=== PATIENT | female | born 1995 | race Caucasian/White ===

== ENCOUNTER 2016-09-12 08:24 | Emergency (ER) | payer SELFPAY ==
[~2016-09-12] VITALS: Ht 167.6 cm; Wt 61.2 kg
[~2016-09-12 08:24] MED LIST: ACID1TAB PO; BUDE0.5A INH; CEPH-507 PO; CLIN75CA2 PO; HYDR-3454 PO; HYDR1TAB PO; IPRA3AMP INH; PRD20T PO; SULF1TAB38 PO
[2016-09-12] MEDS ORDERED: RT-ALBUTEROL/IPRATROPIUM 3 ML (DUONEB) VIAL ONE (08:37)
[2016-09-12] MEDS ORDERED: RT-ALBUTEROL/IPRATROPIUM 3 ML (DUONEB) VIAL INH ONE (08:45)
[2016-09-12] MEDS ORDERED: methylPREDNISolone 125 MG (Solu-MEDROL) VIAL IM ONE (09:15)
--- NOTE | 2016-09-12 09:45 | Diagnostic Imaging Report ---
Indication: Cough and wheezing PA and lateral chest obtained at 932 hours a.m. Heart and mediastinal silhouette are normal in appearance. The lungs are clear. There is no pneumothorax or pleural fluid. IMPRESSION: Negative chest. Dictated by: Dictated on workstation # [id number]
[2016-09-12] MEDS ORDERED: PRD20T PO (10:06)
[2016-09-12] MEDS ORDERED: RT-ALBUINH IH (10:06)
[2016-09-12] MEDS ORDERED: ALBU2.5V4 IH (10:06)
--- NOTE | 2016-09-12 10:07 | ED Respiratory ---
General Chief Complaint: Respiratory Problems Stated Complaint: COUGH/SOA Nursing Triage Note: c/o difficulty breathing with cough. Significant wheezing auscultated. Pt reports having these episodes 2 times per week. Continues to smoke. Source: patient Exam Limitations: no limitations History of Present Illness Time seen by provider: 08:35 Initial Comments This 20-year-old young lady presents to emergency room with difficulty breathing , cough, and wheezing. She is in mild respiratory distress on arrival. She denies fever but is diaphoretic. She has been seen and admitted for respiratory problems in the past. She has never been formally diagnosed with asthma but has symptoms. She never had her inhaler filled after being seen the last time because of cost. She also has a history of methamphetamine use and smoking marijuana. She denies use of illicit substances within the past few days. She is presently seeking treatment at [facility] for substance abuse. She continues to smoke despite her respiratory problems. She has been using another family member's nebulizer machine at home but it broke last night. She has not had a nebulizer treatment today. Allergies and Home Medications Allergies Coded Allergies: Penicillins (Unverified Allergy, Mild, 05/03/10) ampicillin (Verified Allergy, Mild, 10/21/12) levofloxacin (Verified Allergy, Mild, RASH/ITCHING, 05/21/15) Home Medications Albuterol Sulfate 2.5 Mg/3 Ml Vial.neb, 2.5 MG IH Q4H PRN for WHEEZING, #30 Prescribed by: PERLA DE LA O on 09/12/16 1006 Albuterol Sulfate 1 Puff Puff, 1-4 PUFF IH Q4H PRN for WHEEZING, #1 1 PUFF = 90 MCG Prescribed by: PERLA DE LA O on 09/12/16 1006 Budesonide 0.5 Mg/2 Ml Ampul.neb, 0.5 MG INH RTBID, #30 Prescribed by: WILFRIDO LARSON on 05/22/15 1224 Cephalexin 500 Mg Capsule, 500 MG PO TID, #30 Prescribed by: WILFRIDO LARSON on 05/22/15 1224 Ipratropium/Albuterol Sulfate 3 Ml Ampul.neb, 3 ML INH RTQ2H PRN for SOA, #30 Prescribed by: WILFRIDO LARSON on 12/26/15 1224 L. Acidophilus/Bulgaricus 1 Each Tablet, 1 TAB.CHEW PO AC, #40 Prescribed by: WILFRIDO LARSON on 05/22/15 1224 Prednisone 20 Mg Tab, 60 MG PO DAILY, #15 Prescribed by: WILFRIDO LARSON on 05/22/15 1224 Prednisone 20 Mg Tab, 20 MG PO DAILY, #4 Prescribed by: PERLA DE LA O on 09/12/16 1006 Constitutional: no symptoms reported EENTM: no symptoms reported Respiratory: see HPI Cardiovascular: no symptoms reported Gastrointestinal: no symptoms reported Genitourinary: no symptoms reported Musculoskeletal: no symptoms reported Skin: no symptoms reported Psychiatric/Neurological: See HPI Hematologic/Lymphatic: No Symptoms Reported Past Ivvcyes-Nxsugx-Lsqchi Hx Patient Social History Alcohol Use: Denies Use Recreational Drug Use: No Smoking Status: Current Everyday Smoker 2nd Hand Smoke Exposure: Yes Recent Foreign Travel: No Contact w/Someone Who Travel: No Recent Infectious Disease Expo: No Recent Hopitalizations: No Immunizations Up To Date Tetanus Booster (TDap): Unknown PED Vaccines UTD: No Seasonal Allergies Seasonal Allergies: No Surgeries HX Surgeries: Yes (wisdom teeth) Respiratory Hx Respiratory Disorders: Yes (tobaccoism, marijuana use, restrictive airway disease) Respiratory Disorders: Pneumonia Cardiovascular Hx Cardiac Disorders: No Neurological Hx Neurological Disorders: No Reproductive System Hx Reproductive Disorders: No Sexually Transmitted Disease: No HIV/AIDS: No Female Reproductive Disorders: Denies Genitourinary Hx Genitourinary Disorders: Yes Genitourinary Disorders: UTI-Chronic Gastrointestinal Hx Gastrointestinal Disorders: No Musculoskeletal Hx Musculoskeletal Disorders: No Endocrine Hx Endocrine Disorders: No HEENT HX ENT Disorders: No Loss of Vision: Denies Hearing Impairment: Denies Cancer Hx Cancer: No Psychosocial Hx Psychiatric Problems: Yes Behavioral Health Disorders: Anxiety Integumentary HX Skin/Integumentary Disorder: No Blood Transfusions Hx Blood Disorders: No Adverse Reaction to a Blood Tr: No Family Medical History Significant Family History: Heart Disease, Hypertension Family Medial History: Patient reports no known family medical history. Physical Exam Vital Signs Vital Sign - Last 12Hours 09/12/16 08:30 Temp 97.9 Pulse 101 Resp 20 B/P (MAP) 138/108 Pulse Ox 90 O2 Delivery Room Air Capillary Refill : Less Than 3 Seconds General Appearance: WD/WN, mild distress HEENT: PERRL/EOMI, normal ENT inspection Neck: normal inspection Respiratory: respiratory distress, accessory muscle use, wheezing Cardiovascular: regular rate, rhythm, no edema Gastrointestinal: non tender, soft Extremities: normal inspection, no pedal edema Neurologic/Psychiatric: leasing manager II-XII nml as tested, no motor/sensory deficits, alert, normal mood/affect, oriented x 3 Skin: normal color, warm/dry Progress/Results/Core Measures Results/Orders Micro Results Microbiology 09/12/16 Influenza Types A,B Antigen (JENNIFER) - Final, Complete My Orders Orders - PERLA HOLGUIN MD Albuterol/Ipra Inhalation Soln (Duoneb I (09/12/16 08:37) Chest Pa/Lat (2 View) (09/12/16 08:41) Albuterol/Ipra Inhalation Soln (Duoneb I (09/12/16 08:45) Svn Sm Volume Nebulizer Rt-Rfs (09/12/16 08:41) Urine Bedside (09/12/16 08:41) Influenza A And B Antigens (09/12/16 08:41) Methylprednisolone Sod Succ (Solu-Medrol (09/12/16 09:15) Medications Given in ED Current Medications Medications Dose Ordered Sig/Mitch Route Start Time Stop Time Status Last Admin Dose Admin Albuterol/ Ipratropium 3 ml STK-MED ONCE .ROUTE 09/12/16 08:37 09/12/16 08:41 DC 09/12/16 08:42 3 ML Methylprednisolone Sodium Succinate 125 mg ONCE ONCE IM 09/12/16 09:15 09/12/16 09:16 DC 09/12/16 09:23 125 MG Vital Signs/I&O Vital Sign - Last 12Hours 09/12/16 09/12/16 09/12/16 08:30 09:23 10:12 Temp 97.9 97.9 97.5 Pulse 101 88 Resp 20 18 B/P (MAP) 138/108 Pulse Ox 90 98 O2 Delivery Room Air Blood Pressure Mean: 118 Point of Care Testing Urine -Bedside: Negative Progress Note : Progress Note Patient received a DuoNeb treatment and a Solu-Medrol injection. Wheezing resolved and she felt much better. We discussed smoking cessation and substance abuse treatment at length. Diagnostic Imaging Diagonstic Imaging: Xray Plain Films/CT/US/NM/MRI: chest Comments Chest x-ray viewed by me and report reviewed. See report below: NAME: BONNIE DURAN [facility] REC#: [id number] PT STATUS: REG ER : 1995 PHYSICIAN: PERLA HOLGUIN MD ADMIT DATE: 09/12/16/ER Draft Date of Exam:09/12/16 CHEST PA/LAT (2 VIEW) Indication: Cough and wheezing PA and lateral chest obtained at 932 hours a.m. Heart and mediastinal silhouette are normal in appearance. The lungs are clear. There is no pneumothorax or pleural fluid. IMPRESSION: Negative chest. Dictated on workstation # [id number] Dict: 09/12/16930 Trans: 09/12/16943 [facility] [id number] Interpreted by: YAKOV CALIX MD Departure Impression Impression: Primary Impression: Asthma exacerbation Disposition: 01 HOME, SELF-CARE Condition: Improved Departure-Patient Inst. Decision time for Depature: 10:03 Referrals: [facility] (PCP/Family) Primary Care Physician Patient Instructions: Asthma, Adult (DC) Add. Discharge Instructions: Quit smoking and use of any other inhaled substances as rapidly as possible. You may use nicotine replacement such as gum, lozenges, or patches. Avoid over- the-counter inhaled nicotine products. Use your prednisone steroids as prescribed. Use your inhaler and nebulizer machine as prescribed. Make a follow-up appointment with [facility] as soon as possible. Return to the ER if symptoms worsen. All discharge instructions reviewed with patient and/or family. Voiced understanding. Scripts Prednisone (Prednisone) 20 Mg Tab 20 MG PO DAILY, #4 TAB Prov: PERLA HOLGUIN MD 09/12/16 Albuterol Sulfate (PROAIR HFA) 1 Puff Puff 1-4 PUFF IH Q4H Y for WHEEZING, #1 PUFF 1 PUFF = 90 MCG Prov: PERLA HOLGUIN MD 09/12/16 Albuterol Sulfate (Albuterol Sulfate) 2.5 Mg/3 Ml Vial.neb 2.5 MG IH Q4H Y for WHEEZING, #30 EA Prov: PERLA HOLGUIN MD 09/12/16 Copy Copies To 1: KJ STOVER JOSHUA T MD Sep 12, 2016 10:07
[2016-09-12 10:12] VITALS: BP 135/93
== END 2016-09-12 10:17 | disposition home or self-care (01) ==
LOC: EDUNIT# 08:24 → ER 08:26
DX: J45.901 Unspecified asthma with (acute) exacerbation (principal); F17.210 Nicotine dependence, cigarettes, uncomplicated; F19.21 Other psychoactive substance dependence, in remission
CPT/HCPCS: 71020; 84703; 87804; 96372; 99282

== ENCOUNTER 2019-07-22 21:43 | Emergency (ER) | payer SELFPAY ==
[~2019-07-22] VITALS: Ht 170.1 cm; Wt 68.4 kg
[~2019-07-22 21:43] MED LIST changes: +ALBU2.5V4 IH; -IPRA3AMP INH; +IPRA3AMP31 INH; +RT-ALBUINH IH
[2019-07-22] MEDS ORDERED: CYCLOBENZAPRINE 10 MG (FLEXERIL) TAB PO SCH (22:00)
[2019-07-22] MEDS ORDERED: IBUPROFEN 800 MG (MOTRIN) TAB PO ONE (22:00)
--- NOTE | 2019-07-22 22:03 | ED Cough/URI ---
General Stated Complaint: CHEST PAINS Source: patient Exam Limitations: no limitations History of Present Illness Date Seen by Provider: Jul 22, 2019 Time Seen by Provider: 22:02 Initial Comments To ER to three-day history of sharp right-sided chest pain from the back around the mid scapula around to the front. Pain is worsened by movement twisting and turning breathing coughing. No recent illness. Similar episode a few years ago, states she was advised to follow-up with Dr. Chavez but never did. She denies any drug or stimulant use. Timing/Duration: constant Severity/Quality: moderate Associated Symptoms: cough Allergies and Home Medications Allergies Coded Allergies: Penicillins (Unverified Allergy, Mild, 05/03/10) ampicillin (Verified Allergy, Mild, 10/21/12) levofloxacin (Verified Allergy, Mild, RASH/ITCHING, 05/21/15) Home Medications Albuterol Sulfate 2.5 Mg/3 Ml Vial.neb, 2.5 MG IH Q4H PRN for WHEEZING Prescribed by: PERLA DE LA O on 09/12/16 1006 Albuterol Sulfate 1 Puff Puff, 1-4 PUFF IH Q4H PRN for WHEEZING 1 PUFF = 90 MCG Prescribed by: PERLA DE LA O on 09/12/16 1006 Budesonide 0.5 Mg/2 Ml Ampul.neb, 0.5 MG INH RTBID Prescribed by: WILFRIDO LARSON on 05/22/15 1224 Cephalexin 500 Mg Capsule, 500 MG PO TID Prescribed by: WILFRIDO LARSON on 05/22/15 1224 Ipratropium/Albuterol Sulfate 3 Ml Ampul.neb, 3 ML INH RTQ2H PRN for SOA Prescribed by: WILFRIDO LARSON on 05/22/15 1224 L. Acidophilus/Bulgaricus 1 Each Tablet, 1 TAB.CHEW PO AC Prescribed by: WILFRIDO LARSON on 05/22/15 1224 Prednisone 20 Mg Tab, 60 MG PO DAILY Prescribed by: WILFRIDO LARSON on 05/22/15 1224 Prednisone 20 Mg Tab, 20 MG PO DAILY Prescribed by: PERLA DE LA O on 09/12/16 1006 Patient Home Medication List Home Medication List Reviewed: Yes Review of Systems Review of Systems Constitutional: see HPI EENTM: see HPI Respiratory: no symptoms reported Cardiovascular: no symptoms reported Genitourinary: no symptoms reported Musculoskeletal: no symptoms reported Skin: no symptoms reported Psychiatric/Neurological: No Symptoms Reported Hematologic/Lymphatic: No Symptoms Reported Immunological/Allergic: no symptoms reported Past Fvrnzoj-Bsqxuo-Esvlzl Hx Patient Social History 2nd Hand Smoke Exposure: Yes Recent Foreign Travel: No Contact w/Someone Who Travel: No Recent Hopitalizations: No Immunizations Up To Date Tetanus Booster (TDap): Unknown PED Vaccines UTD: No Seasonal Allergies Seasonal Allergies: No Past Medical History Pneumonia Reproductive Disorders: No Female Reproductive Disorders: Denies Sexually Transmitted Disease: No HIV/AIDS: No UTI-Chronic Loss of Vision: Denies Hearing Impairment: Denies Anxiety Adverse Reaction/Blood Tranf: No Family Medical History Patient reports no known family medical history. Heart Disease, Hypertension Physical Exam Capillary Refill : Height: 5'6.00" Weight: 135lbs. oz. 61.445384tb; BMI Method:Estimated General Appearance: WD/WN, no apparent distress, other (no distress alert and oriented heart rate 90-105 sinus, oxygen 100% room air.) HEENT: PERRL/EOMI, normal ENT inspection Respiratory: no respiratory distress, no accessory muscle use Cardiovascular: regular rate, rhythm Gastrointestinal: normal bowel sounds, non tender, soft Extremities: normal range of motion, non-tender Neurologic/Psychiatric: alert, normal mood/affect, oriented x 3 Skin: normal color, warm/dry Progress/Results/Core Measures Suspected Sepsis SIRS Temperature: Pulse: Respiratory Rate: Blood Pressure / Mean: Results/Orders My Orders Orders - NICK BROWN APRN Chest Pa/Lat (2 View) (07/22/19 22:00) Ekg Tracing (07/22/19 22:00) Ibuprofen Tablet (Motrin Tablet) (07/22/19 22:00) Cyclobenzaprine Tablet (Flexeril Tablet) (07/22/19 22:00) Vital Signs/I&O Capillary Refill : Departure Impression Primary Impression: Pleuritic chest pain Disposition: 01 HOME, SELF-CARE Condition: Stable Departure-Patient Inst. Decision time for Depature: 22:19 Referrals: ABELARDO CHAVEZ DO [facility] (PCP/Family) Primary Care Physician Patient Instructions: Pleuritic Chest Pain Add. Discharge Instructions: 1. Return to ER for any concerns 2. Follow-up with your doctor next week 3. NICK BROWN APRN Jul 22, 2019 22:03
[2019-07-22 22:27] VITALS: BP 119/74
--- NOTE | 2019-07-23 07:42 | Diagnostic Imaging Report ---
Indication: Chest pain PA and lateral chest Heart size and pulmonary vascularity are normal. Lungs are clear. There are no effusions or pneumothoraces. IMPRESSION: Negative chest Dictated by: Dictated on workstation # [id number]
== END 2019-07-22 22:27 | disposition home or self-care (01) ==
LOC: EDUNIT# 21:43 → ER 21:46
DX: R07.81 Pleurodynia (principal); Z88.0 Allergy status to penicillin; Z88.1 Allergy status to other antibiotic agents; Z88.8 Allergy status to other drugs, medicaments and biological substances; Z79.52 Long term (current) use of systemic steroids; Z87.01 Personal history of pneumonia (recurrent); Z87.440 Personal history of urinary (tract) infections
CPT/HCPCS: 71046; 93005

== ENCOUNTER 2020-03-10 13:22 | Emergency (ER) | payer SELFPAY ==
[~2020-03-10] VITALS: Ht 170 cm; Wt 63.0 kg
[2020-03-10] MEDS ORDERED: FAMOTIDINE 20 MG (PEPCID) TABLET PO STA (13:31)
[2020-03-10] MEDS ORDERED: LACTATED RINGERS 1,000 ML IV ONE (13:35)
[2020-03-10] MEDS ORDERED: KETOROLAC 30 MG/ML VIAL IVP ONE (13:45)
[2020-03-10] MEDS ORDERED: methylPREDNISolone 125 MG (Solu-MEDROL) VIAL IM ONE (13:45)
[2020-03-10] MEDS ORDERED: PANTOPRAZOLE 40 MG (PROTONIX) VIAL IV ONE (13:45)
[2020-03-10] MEDS ORDERED: diphenhydrAMINE 25 MG TAB (BENADRYL) PO ONE (13:45)
--- NOTE | 2020-03-10 13:48 | ED Abdominal Pain ---
General Chief Complaint: Abdominal/GI Problems Stated Complaint: ABDOMINAL PAIN Nursing Triage Note: PT STATES SEVERE ABD PAIN THAT STARTED LAST NIGHT, ON HER PERIOD BUT HAS NOT FELT PAIN LIKE THIS BEFORE. Sepsis Screen: No Definite Risk Source of Information: Patient Exam Limitations: No Limitations History of Present Illness Date Seen by Provider: Mar 10, 2020 Time Seen by Provider: 13:28 Initial Comments Patient presents to ER by private conveyance from home with chief complaint since last night she started experiencing constant abdominal pain around her umbilicus. She has no history of abdominal surgeries or trauma. No fevers chills nausea or vomiting. She took some ibuprofen last night with little relief of pain. It's getting worse today and now she rates it as a 10 out of 10. She says she started her period 4 days ago and this is nothing like her menstrual cramps. She is routine with her periods monthly. She is not on any medications including control. She does not have any significant medical history or follow with a doctor. She is not having any dysuria, dyspareunia, discharge, diarrhea. She had a bowel movement yesterday which was normal, formed. No blood in the stool. No history of colonoscopies. Her family has a history of irritable bowel syndrome. Allergies and Home Medications Allergies Coded Allergies: Penicillins (Unverified Allergy, Mild, 05/03/10) ampicillin (Verified Allergy, Mild, 10/21/12) levofloxacin (Verified Allergy, Mild, RASH/ITCHING, 05/21/15) Home Medications Albuterol Sulfate 2.5 Mg/3 Ml Vial.neb, 2.5 MG IH Q4H PRN for WHEEZING Prescribed by: PERLA DE LA O on 09/12/16 1006 Albuterol Sulfate 1 Puff Puff, 1-4 PUFF IH Q4H PRN for WHEEZING 1 PUFF = 90 MCG Prescribed by: PERLA DE LA O on 09/12/16 1006 Budesonide 0.5 Mg/2 Ml Ampul.neb, 0.5 MG INH RTBID Prescribed by: WILFRIDO LARSON on 05/22/15 1224 Cephalexin 500 Mg Capsule, 500 MG PO TID Prescribed by: WILFRIDO LARSON on 05/22/15 1224 Hydrocodone/Acetaminophen 1 Each Tablet, 1 EACH PO Q6H PRN for PAIN-BREAKTHROUGH Prescribed by: MERY SINGLETARY on 03/10/20 1559 Ipratropium/Albuterol Sulfate 3 Ml Ampul.neb, 3 ML INH RTQ2H PRN for SOA Prescribed by: WILFRIDO LARSON on 05/22/15 1224 L. Acidophilus/Bulgaricus 1 Each Tablet, 1 TAB.CHEW PO AC Prescribed by: WILFRIDO LARSON on 05/22/15 1224 Ondansetron 4 Mg Tab.rapdis, 4 MG PO Q6H PRN for NAUSEA/VOMITING Prescribed by: MERY SINGLETARY on 03/10/20 1557 Prednisone 20 Mg Tab, 60 MG PO DAILY Prescribed by: WILFRIDO LARSON on 05/22/15 1224 Prednisone 20 Mg Tab, 20 MG PO DAILY Prescribed by: PERLA DE LA O on 09/12/16 1006 Patient Home Medication List Home Medication List Reviewed: Yes Review of Systems Review of Systems Constitutional: No chills, No diaphoresis, No fever EENTM: No Blurred Vision, No Double Vision Respiratory: Denies Cough, Denies Shortness of Air Cardiovascular: Denies Chest Pain, Denies Lightheadedness Gastrointestinal: See HPI; Denies Abdomen Distended; Abdominal Pain; Denies Constipated, Denies Diarrhea, Denies Nausea, Denies Vomiting Genitourinary: Denies Burning, Denies Discharge, Denies Drainage Musculoskeletal: No back pain, No joint pain All Other Systems Reviewed Negative Unless Noted: Yes Past Gpehubg-Wkmoil-Mqwzcs Hx Patient Social History Alcohol Use: Denies Use Recreational Drug Use: Yes Smoking Status: Current Everyday Smoker Type Used: Cigarettes 2nd Hand Smoke Exposure: Yes Recent Foreign Travel: No Contact w/Someone Who Travel: No Recent Infectious Disease Expo: No Recent Hopitalizations: No Immunizations Up To Date Tetanus Booster (TDap): Unknown PED Vaccines UTD: No Seasonal Allergies Seasonal Allergies: No Past Medical History Surgeries: Yes (wisdom teeth) Respiratory: Yes (tobaccoism, marijuana use, restrictive airway disease) Pneumonia Cardiac: No Neurological: No : No Last Menstrual Period: Mar 10, 2020 Reproductive Disorders: No Female Reproductive Disorders: Denies Sexually Transmitted Disease: No HIV/AIDS: No Genitourinary: Yes UTI-Chronic Gastrointestinal: No Musculoskeletal: No Endocrine: No Loss of Vision: Denies Hearing Impairment: Denies Cancer: No Psychosocial: Yes Anxiety Integumentary: No Blood Disorders: No Adverse Reaction/Blood Tranf: No Family Medical History Patient reports no known family medical history. Heart Disease, Hypertension Physical Exam Vital Signs Vital Signs - First Documented 03/10/20 13:31 Temp 37.6 Pulse 103 Resp 22 B/P (MAP) 123/80 (94) Pulse Ox 100 O2 Delivery Room Air Capillary Refill : Less Than 3 Seconds Height/Weight/BMI Height: 5'6.00" Weight: 135lbs. oz. 61.606003oa; 21.00 BMI Method:Estimated General Appearance: WD/WN, moderate distress HEENT: PERRL/EOMI, pharynx normal Neck: full range of motion, supple, normal inspection Respiratory: lungs clear, normal breath sounds, no respiratory distress, no accessory muscle use Cardiovascular: normal peripheral pulses, regular rate, rhythm Gastrointestinal: normal bowel sounds (quiescent), soft, no organomegaly; No guarding; rebound, tenderness (all 4 quadrants but especially in her epigastric/periumbilical. Rovsing sign causes pain across her abdomen. Heeltap causes pain. Negative for psoas signs. Clark sign positive right upper quadrant. McBurney's point tenderness with rebound tenderness. ) Extremities: normal range of motion, normal inspection, normal capillary refill Neurologic/Psychiatric: alert, normal mood/affect, oriented x 3 Skin: normal color, warm/dry Progress/Results/Core Measures Results/Orders Lab Results Laboratory Tests Test 03/10/20 13:45 Range/Units White Blood Count 14.9 H 4.3-11.0 10^3/uL Red Blood Count 3.95 3.80-5.11 10^6/uL Hemoglobin 13.1 11.5-16.0 g/dL Hematocrit 39 35-52 % Mean Corpuscular Volume 100 H 80-99 fL Mean Corpuscular Hemoglobin 33 25-34 pg Mean Corpuscular Hemoglobin Concent 33 32-36 g/dL Red Cell Distribution Width 13.5 10.0-14.5 % Platelet Count 239 130-400 10^3/uL Mean Platelet Volume 10.5 9.0-12.2 fL Immature Granulocyte % (Auto) 1 % Neutrophils (%) (Auto) 90 H 42-75 % Lymphocytes (%) (Auto) 6 L 12-44 % Monocytes (%) (Auto) 3 0-12 % Eosinophils (%) (Auto) 0 0-10 % Basophils (%) (Auto) 0 0-10 % Neutrophils # (Auto) 13.4 H 1.8-7.8 10^3/uL Lymphocytes # (Auto) 0.9 L 1.0-4.0 10^3/uL Monocytes # (Auto) 0.4 0.0-1.0 10^3/uL Eosinophils # (Auto) 0.0 0.0-0.3 10^3/uL Basophils # (Auto) 0.0 0.0-0.1 10^3/uL Immature Granulocyte # (Auto) 0.1 0.0-0.1 10^3/uL Neutrophils % (Manual) 75 % Lymphocytes % (Manual) 5 % Monocytes % (Manual) 2 % Eosinophils % (Manual) 1 % Band Neutrophils 17 % Blood Morphology Comment NORMAL Sodium Level 136 135-145 MMOL/L Potassium Level 4.2 3.6-5.0 MMOL/L Chloride Level 104 98-107 MMOL/L Carbon Dioxide Level 21 21-32 MMOL/L Anion Gap 11 5-14 MMOL/L Blood Urea Nitrogen 14 7-18 MG/DL Creatinine 0.83 0.60-1.30 MG/DL Estimat Glomerular Filtration Rate > 60 BUN/Creatinine Ratio 17 Glucose Level 135 H 70-105 MG/DL Calcium Level 8.8 8.5-10.1 MG/DL Corrected Calcium 8.8 8.5-10.1 MG/DL Total Bilirubin 0.7 0.1-1.0 MG/DL Aspartate Amino Transf (AST/SGOT) 16 5-34 U/L Alanine Aminotransferase (ALT/SGPT) 12 0-55 U/L Alkaline Phosphatase 58 40-136 U/L C-Reactive Protein High Sensitivity 11.43 H 0.00-0.50 MG/DL Total Protein 7.2 6.4-8.2 GM/DL Albumin 4.0 3.2-4.5 GM/DL Lipase 16 8-78 U/L Serum Test, Qualitative NEGATIVE NEGATIVE My Orders Orders - MERY SINGLETARY Pantoprazole Injection (Protonix Injecti (03/10/20 13:45) Cbc With Automated Diff (03/10/20 13:35) Comprehensive Metabolic Panel (03/10/20 13:35) Hs C Reactive Protein (03/10/20 13:35) Lipase (03/10/20 13:35) Ed Iv/Invasive Line Start (03/10/20 13:35) Lactated Ringers (Lr 1000 Ml Iv Solution (03/10/20 13:35) Ketorolac Injection (Toradol Injection) (03/10/20 13:45) Hcg,Qualitative Serum (03/10/20 13:48) Manual Differential (03/10/20 13:45) Ct Abd/Pelv W (Appendicitis) (03/10/20 14:20) Iohexol Injection (Omnipaque 350 Mg/Ml 1 (03/10/20 14:30) Received Contrast (Hold Metformin- Contr (03/10/20 14:30) Ns (Ivpb) (Sodium Chloride 0.9% Ivpb Bag (03/10/20 14:30) Medications Given in ED Current Medications Medications Dose Ordered Sig/Mitch Route Start Time Stop Time Status Last Admin Dose Admin Iohexol 100 ml ONCE ONCE IV 03/10/20 14:30 03/10/20 14:55 DC 03/10/20 14:34 83 ML Ketorolac Tromethamine 30 mg ONCE ONCE IVP 03/10/20 13:45 03/10/20 13:46 DC 03/10/20 13:54 30 MG Lactated Ringer's 1,000 ml @ 0 mls/hr Q0M ONCE IV 03/10/20 13:35 03/10/20 13:41 DC 03/10/20 13:54 1,000 MLS/HR Pantoprazole 40 mg ONCE ONCE IV 03/10/20 13:45 03/10/20 13:46 DC 03/10/20 13:54 40 MG Sodium Chloride 100 ml ONCE ONCE IV 03/10/20 14:30 03/10/20 14:55 DC 03/10/20 14:34 80 ML Vital Signs/I&O 03/10/20 03/10/20 13:31 13:54 Temp 37.6 37.6 Pulse 103 Resp 22 B/P (MAP) 123/80 (94) Pulse Ox 100 O2 Delivery Room Air Blood Pressure Mean: 94 Progress Progress Note #1: Time: 13:46 Progress Note Patient seems to have some mesenteric, tender abdominal exam with an elevated heart rate in the 90s. Regular her some Toradol and pantoprazole for her discomfort start. Is not meeting septic criteria just yet. Concern for appendicitis, cholecystitis. We'll get some labs to include lipase to help us differentiate. Urine. She says she just urinated in the lobby so we will get a serum hCG. Progress Note #2: Time: 14:15 Progress Note Patient's pain is significantly improved from a 10 down to a 7. She did ask for something else for pain and we offered fentanyl but she declined opiates for now. She appears much more comfortable. She still has a tender abdomen especially in the right lower quadrant and her umbilicus. After reviewing the labs are does seem to be some kind of inflammatory possibly infectious process going on and our suspicion for appendicitis is high. We are going to get a CAT scan of the abdomen and pelvis with IV contrast focusing on the appendix. Progress Note #3: Time: 15:52 Progress Note The patient is much more comfortable able to move around and was even resting with her eyes closed when we entered the room. Rule out allow her to transfer home with presumed viral enteritis on no antibiotics and follow-up in the clinic in the next 2-[address] Khan. Return precautions given. Diagnostic Imaging Diagonstic Imaging: CT Plain Films/CT/US/NM/MRI: abdomen, pelvis Comments NAME: BONNIE DURAN [facility] REC#: [id number] PT STATUS: REG ER : 1995 PHYSICIAN: MERY SINGLETARY MD ADMIT DATE: 03/10/20/ER Draft Date of Exam:03/10/20 CT ABD/PELV W (APPENDICITIS) PROCEDURE: CT abdomen and pelvis with contrast, rule out appendicitis. TECHNIQUE: Multiple contiguous axial images were obtained through the abdomen and pelvis after the administration of intravenous contrast. All CT scans use one or more of the following dose optimizing techniques: automated exposure control, MA and/or KvP adjustment based on patient size and exam type or iterative reconstruction. INDICATION: Right lower quadrant abdominal pain. COMPARISON: None. FINDINGS: Lung bases are clear. The liver, gallbladder, pancreas, spleen, and adrenals are negative. No hydronephrosis. The unopacified bladder and reproductive structures are grossly unremarkable. The appendix is not identified. Prominent but nondilated diffusely fluid-filled small bowel. No free intraperitoneal air or fluid. No lymphadenopathy. Osseous structures are negative. IMPRESSION: 1. Diffusely prominent but nondilated fluid-filled small bowel can be seen with an enteritis. No evidence of bowel obstruction. 2. The appendix is not identified and may be surgically absent. No suspicious inflammatory findings in the region of the cecum. If appendicitis is of clinical concern, a repeat exam after delayed oral or rectal contrast could be performed. Dictated on workstation # [id number] Dict: 03/10/20 1443 Trans: 03/10/20 1454 [id number] Interpreted by: SHERRI HALL MD Electronically signed by: Reviewed: Reviewed by Me Departure Impression Primary Impression: Enteritis Disposition: HOME, SELF-CARE Condition: Improved Departure-Patient Inst. Decision time for Depature: 15:45 Referrals: [facility] [place] (PCP/Family) Primary Care Physician FARNAZ KHAN MD Patient Instructions: Viral Gastroenteritis, Adult (DC) Add. Discharge Instructions: I suspect you have a gastroenteritis which should be self-limiting in about 3-5 days. Drink plenty of fluids. Ondansetron one tablet every 6 hours as necessary under the tongue if you have nausea or vomiting. Tylenol 650 mg every 6 hours as necessary for pain. Ibuprofen 800 mg every 8 hours as necessary for pain. Hydrocodone one tablet every 6 hours as necessary for breakthrough pain. If you develop diarrhea then you may use loperamide 2 tablets followed by one every 4 hours afterwards if you're still having watery stools. Follow-up with Dr. Khan in the clinic if your symptoms persist more than 3 days for reevaluation. Return to the ER if you're having worsening symptoms such as fever, intractable pain, intractable nausea. All discharge instructions reviewed with patient and/or family. Voiced understanding. Scripts Ondansetron (Ondansetron Odt) 4 Mg Tab.rapdis 4 MG PO Q6H PRN for NAUSEA/VOMITING, #8 TAB 0 Refills Prov: MERY SINGLETARY 03/10/20 Hydrocodone/Acetaminophen (Hydrocodone-Acetamin 5-325 mg) 1 Each Tablet 1 EACH PO Q6H PRN for PAIN-BREAKTHROUGH, #12 TAB 0 Refills Prov: MERY SINGLETARY 03/10/20 Work/School Note: Work Release Form Date Seen in the Emergency Department: Mar 10, 2020 Return to Work: Mar 11, 2020 Restrictions: No Restrictions Copy Copies To 1: FARNAZ KHAN MD, TITUS J Mar 10, 2020 13:48
[2020-03-10 13:51] LABS: BASOPHILS % (AUTO) 0 % (0-10); EOSINOPHILS % (AUTO) 0 % (0-10); HEMATOCRIT 39 % (35-52); HEMOGLOBIN 13.1 g/dL (11.5-16.0); LYMPHOCYTES # (AUTO) 0.9 10^3/uL (1.0-4.0); LYMPHOCYTES % (AUTO) 6 % (12-44); MEAN CORPUSCULAR HEMOGLOBIN 33 pg (25-34); MEAN CORPUSCULAR HGB CONC 33 g/dL (32-36); MEAN CORPUSCULAR VOLUME 100 fL (80-99); MEAN PLATELET VOLUME 10.5 fL (9.0-12.2); MONOCYTES # (AUTO) 0.4 10^3/uL (0.0-1.0); MONOCYTES % (AUTO) 3 % (0-12); NEUTROPHILS # (AUTO) 13.4 10^3/uL (1.8-7.8); NEUTROPHILS % (AUTO) 90 % (42-75); PLATELET COUNT 239 10^3/uL (130-400); WHITE BLOOD COUNT 14.9 10^3/uL (4.3-11.0)
[2020-03-10 14:04] LABS: CHLORIDE 104 MMOL/L (98-107); POTASSIUM 4.2 MMOL/L (3.6-5.0); SODIUM 136 MMOL/L (135-145)
[2020-03-10 14:06] LABS: CALCIUM 8.8 MG/DL (8.5-10.1)
[2020-03-10 14:07] LABS: GLUCOSE 135 MG/DL (70-105); TOTAL PROTEIN 7.2 GM/DL (6.4-8.2)
[2020-03-10 14:08] LABS: CARBON DIOXIDE 21 MMOL/L (21-32)
[2020-03-10 14:09] LABS: BILIRUBIN,TOTAL 0.7 MG/DL (0.1-1.0)
[2020-03-10 14:10] LABS: ALKALINE PHOSPHATASE 58 U/L (40-136)
[2020-03-10 14:11] LABS: CREATININE SERUM 0.83 MG/DL (0.60-1.30); GFR ESTIMATED > 60
[2020-03-10 14:12] LABS: BUN/CREATININE RATIO 17
[2020-03-10 14:13] LABS: ALANINE AMINOTRANSFERASE 12 U/L (0-55); BAND NEUTROPHILS 17 %; EOSINOPHILS % (MANUAL) 1 %; LYMPHOCYTES % (MANUAL) 5 %; MONOCYTES % (MANUAL) 2 %; NEUTROPHILS % (MANUAL) 75 %
[2020-03-10 14:14] LABS: LIPASE 16 U/L (8-78); RBC MORPH NORMAL
[2020-03-10] MEDS ORDERED: HOLD METFORMIN - RECEIVED CONTRAST 20 ML VIAL IV SCH (14:30)
[2020-03-10] MEDS ORDERED: IOHEXOL 350 MG/ML 100 ML (OMNIPAQUE 350) VIAL IV ONE (14:30)
[2020-03-10] MEDS ORDERED: NS 100 ML (IVPB) BAG IV ONE (14:30)
--- NOTE | 2020-03-10 14:54 | Diagnostic Imaging Report ---
PROCEDURE: CT abdomen and pelvis with contrast, rule out appendicitis. TECHNIQUE: Multiple contiguous axial images were obtained through the abdomen and pelvis after the administration of intravenous contrast. All CT scans use one or more of the following dose optimizing techniques: automated exposure control, MA and/or KvP adjustment based on patient size and exam type or iterative reconstruction. INDICATION: Right lower quadrant abdominal pain. COMPARISON: None. FINDINGS: Lung bases are clear. The liver, gallbladder, pancreas, spleen, and adrenals are negative. No hydronephrosis. The unopacified bladder and reproductive structures are grossly unremarkable. The appendix is not identified. Prominent but nondilated diffusely fluid-filled small bowel. No free intraperitoneal air or fluid. No lymphadenopathy. Osseous structures are negative. IMPRESSION: 1. Diffusely prominent but nondilated fluid-filled small bowel can be seen with an enteritis. No evidence of bowel obstruction. 2. The appendix is not identified and may be surgically absent. No suspicious inflammatory findings in the region of the cecum. If appendicitis is of clinical concern, a repeat exam after delayed oral or rectal contrast could be performed. Dictated by: Dictated on workstation # [id number]
[2020-03-10] MEDS ORDERED: ONDA4TAB11 PO (15:57)
[2020-03-10] MEDS ORDERED: ACHD5005 PO (15:57)
[2020-03-10 16:23] LABS: BILIRUBIN,URINE NEGATIVE (NEGATIVE); CLARITY,URINE CLEAR; COLOR,URINE YELLOW; GLUCOSE, URINE (UA) NEGATIVE (NEGATIVE); KETONES,URINE NEGATIVE (NEGATIVE); LEUKOCYTE ESTERASE ,URINE NEGATIVE (NEGATIVE); NITRITE,URINE NEGATIVE (NEGATIVE); PROTEIN,URINE TRACE (NEGATIVE)
[2020-03-10] MEDS ORDERED: HYDROcodone/APAP 5 MG/325 MG (LORTAB) TAB PO ONE (16:30)
[2020-03-10 16:45] VITALS: BP 104/63
[2020-03-10 16:57] LABS: BACTERIA,URINE FEW /HPF; WBC,URINE RARE /HPF
== END 2020-03-10 16:45 | disposition home or self-care (01) ==
LOC: EDUNIT# 13:22 → ER 13:23
DX: K52.9 Noninfective gastroenteritis and colitis, unspecified (principal); F17.210 Nicotine dependence, cigarettes, uncomplicated; Z82.49 Family history of ischemic heart disease and other diseases of the circulatory system; Z88.0 Allergy status to penicillin; Z88.1 Allergy status to other antibiotic agents; Z79.52 Long term (current) use of systemic steroids
CPT/HCPCS: 36415; 74177; 80053; 81000; 83690; 84703; 85007; 85027; 86141

== ENCOUNTER 2022-03-09 19:28 | Emergency (ER) | payer SELFPAY ==
[~2022-03-09 19:28] MED LIST changes: +ACHD5005 PO; +ONDA4TAB11 PO
[2022-03-09] MEDS ORDERED: ASPIRIN 81 MG CHEW (CHILDREN'S ASA) PO STA (19:55)
[2022-03-09 20:01] LABS: BASOPHILS % (AUTO) 1 % (0-10); EOSINOPHILS # (AUTO) 0.3 10^3/uL (0.0-0.3); EOSINOPHILS % (AUTO) 4 % (0-10); HEMATOCRIT 40 % (35-52); HEMOGLOBIN 13.4 g/dL (11.5-16.0); LYMPHOCYTES # (AUTO) 1.4 10^3/uL (1.0-4.0); LYMPHOCYTES % (AUTO) 18 % (12-44); MEAN CORPUSCULAR HEMOGLOBIN 32 pg (25-34); MEAN CORPUSCULAR HGB CONC 34 g/dL (32-36); MEAN CORPUSCULAR VOLUME 96 fL (80-99); MEAN PLATELET VOLUME 10.5 fL (9.0-12.2); MONOCYTES # (AUTO) 0.7 10^3/uL (0.0-1.0); MONOCYTES % (AUTO) 8 % (0-12); NEUTROPHILS # (AUTO) 5.6 10^3/uL (1.8-7.8); NEUTROPHILS % (AUTO) 70 % (42-75); PLATELET COUNT 295 10^3/uL (130-400); WHITE BLOOD COUNT 8.1 10^3/uL (4.3-11.0)
[2022-03-09 20:27] LABS: ALANINE AMINOTRANSFERASE 14 U/L (0-55); ALBUMIN 4.1 GM/DL (3.2-4.5); ALKALINE PHOSPHATASE 64 U/L (40-136); CALCIUM 9.2 MG/DL (8.5-10.1); CARBON DIOXIDE 22 MMOL/L (21-32); CHLORIDE 105 MMOL/L (98-107); CREATININE SERUM 0.92 MG/DL (0.60-1.30); GFR ESTIMATED 87; GLUCOSE 87 MG/DL (70-105); POTASSIUM 4.1 MMOL/L (3.6-5.0); SODIUM 138 MMOL/L (135-145); TOTAL PROTEIN 7.7 GM/DL (6.4-8.2)
[2022-03-09 20:40] LABS: BILIRUBIN,URINE NEGATIVE (NEGATIVE); CLARITY,URINE CLEAR; COLOR,URINE YELLOW; GLUCOSE, URINE (UA) NEGATIVE (NEGATIVE); KETONES,URINE NEGATIVE (NEGATIVE); LEUKOCYTE ESTERASE ,URINE NEGATIVE (NEGATIVE); NITRITE,URINE NEGATIVE (NEGATIVE); PROTEIN,URINE NEGATIVE (NEGATIVE)
--- NOTE | 2022-03-09 20:40 | ED Respiratory ---
General Chief Complaint: Chest Pain Stated Complaint: CHEST PAIN,COUGH,CONGESTION Nursing Triage Note: PT ARRIVAL TO ER WITH COMPLAINT OF CHEST PAIN X2 DAYS, COUGH X3 WEEKS. PAIN IS WORSE WITH COUGH, MOVEMENT, AND PALPATION. (NUNU MILES) History of Present Illness Date Seen by Provider: Mar 09, 2022 Time Seen by Provider: 19:45 Initial Comments 26-year-old female presents for left-sided chest and rib pain. Her symptoms of been present for approximately 2 days. She has had cough and congestion for approximately 3 weeks. She has been seen at [facility] and started on an inhaler. She does have a history of respiratory distress and asthma. She reports continuing to smoke meth. Denies SOA. Timing/Duration: intermittent, other (3 weeks cough, 2 days chest pain) Severity: moderate Associated Symptoms: chest pain/soreness, cough; No dizziness, No fever/chills, No muscle aches; nasal congestion, nasal drainage; No shortness of breath, No sinus infection, No sore throat, No wheezing (NUNU MILES) Allergies and Home Medications Allergies Coded Allergies: Penicillins (Unverified Allergy, Mild, 05/03/10) ampicillin (Verified Allergy, Mild, 10/21/12) levofloxacin (Verified Allergy, Mild, RASH/ITCHING, 05/21/15) Patient Home Medication List Home Medication List Reviewed: Yes (NUNU MILES) Albuterol Sulfate (Albuterol Sulfate) 2.5 Mg/3 Ml Vial.neb, 2.5 MG IH Q4H PRN for WHEEZING Prescribed by: PERLA DE LA O on 09/12/16 1006 Albuterol Sulfate (Proair Hfa) 1 Puff Puff, 1-4 PUFF IH Q4H PRN for WHEEZING Prescribed by: PERLA DE LA O on 09/12/16 1006 Albuterol Sulfate (Ventolin Hfa) 1 Puff Puff, 2 PUFF INH Q4H Prescribed by: NUNU MILES on 03/09/222126 Budesonide (Budesonide) 0.5 Mg/2 Ml Ampul.neb, 0.5 MG INH RTBID Prescribed by: WILFRIDO LARSON on 05/22/15 1224 Cephalexin (Keflex) 500 Mg Capsule, 500 MG PO TID Prescribed by: WILFRIDO LARSON on 05/22/15 1224 Hydrocodone/Acetaminophen (Hydrocodone-Acetamin 5-325 mg) 1 Each Tablet, 1 EACH PO Q6H PRN for PAIN-BREAKTHROUGH Prescribed by: MERY SINGLETARY on 03/10/20 1559 Ipratropium/Albuterol Sulfate (Iprat-Albut 0.5-3(2.5) mg/3 ml) 3 Ml Ampul.neb, 3 ML INH RTQ2H PRN for SOA Prescribed by: WILFRIDO LARSON on 05/22/15 1224 L. Acidophilus/Bulgaricus (Floranex Tablet) 1 Each Tablet, 1 TAB.CHEW PO AC Prescribed by: WILFRIDO LARSON on 05/22/15 1224 Ondansetron (Ondansetron Odt) 4 Mg Tab.rapdis, 4 MG PO Q6H PRN for NAUSEA/VOMITI NG Prescribed by: MERY SINGLETARY on 03/10/20 1557 Prednisone (Prednisone) 20 Mg Tab, 60 MG PO DAILY Prescribed by: WILFRIDO LARSON on 05/22/15 1224 Prednisone (Prednisone) 20 Mg Tab, 20 MG PO DAILY Prescribed by: PERLA DE LA O on 09/12/16 1006 Review of Systems Review of Systems Constitutional: no symptoms reported, see HPI Respiratory: see HPI, cough Cardiovascular: see HPI, chest pain : No (NUNU MILES) All Other Systems Reviewed Negative Unless Noted: Yes (NUNU MILSE) Past Bkvjggl-Nmtroa-Undmsd Hx Patient Social History Tobacco Use?: Yes Tobacco type used: Cigarettes Smoking Status: Current Everyday Smoker Use of E-Cig and/or Vaping dev: No Substance use?: Yes Substance type: Methamphetamine Additional substance use comme: FORMER USER CLEAN X1 YEAR Alcohol Use?: Yes Alcohol type: Beer, Hard Liquor, Wine Alcohol Frequency: Couple times a week Pt feels they are or have been: No (NUNU MILES) Immunizations Up To Date Tetanus Booster (TDap): Unknown PED Vaccines UTD: No Influenza Vaccine Up-to-Date: No; Not Current First/Initial COVID19 Vaccinat: 06/18 COVID19 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: [employer] (NUNU MILES) Seasonal Allergies Seasonal Allergies: No (NUNU MILES) Past Medical History Surgeries: Yes (wisdom teeth) Respiratory: Yes (tobaccoism, marijuana use, restrictive airway disease) Pneumonia Cardiac: No Neurological: No Reproductive Disorders: No Female Reproductive Disorders: Denies Sexually Transmitted Disease: No HIV/AIDS: No Genitourinary: Yes UTI-Chronic Gastrointestinal: No Musculoskeletal: No Endocrine: No Loss of Vision: Denies Hearing Impairment: Denies Cancer: No Psychosocial: Yes Anxiety Integumentary: No Blood Disorders: No Adverse Reaction/Blood Tranf: No (NUNU MILES RUBY) Family Medical History Reviewed Nursing Family Hx (JDNUNU BELTRAN) Patient reports no known family medical history. Heart Disease, Hypertension (JDNUNU BELTRAN) Physical Exam Vital Signs - First Documented 03/09/22 19:36 Temp 36.6 Pulse 101 Resp 18 B/P (MAP) 117/89 (98) Pulse Ox 98 O2 Delivery Room Air (PERLA HOLGUIN MD) Capillary Refill : Less Than 3 Seconds (JDNUNU BELTRAN) Height: 5'6.00" Weight: 135lbs. oz. [id number]; 21.00 BMI Method:Estimated General Appearance: WD/WN, no apparent distress HEENT: PERRL/EOMI, normal ENT inspection, TMs normal, pharynx normal Neck: non-tender, full range of motion, supple, normal inspection Respiratory: lungs clear, normal breath sounds, other (Left CVAT) Cardiovascular: normal peripheral pulses, regular rate, rhythm Gastrointestinal: normal bowel sounds, non tender, soft Neurologic/Psychiatric: no motor/sensory deficits, alert, normal mood/affect, oriented x 3 Skin: normal color, warm/dry (NUNU MILES RUBY) Progress/Results/Core Measures Suspected Sepsis SIRS Temperature: Pulse: 101 Respiratory Rate: 18 Laboratory Tests 03/09/22 19:45: White Blood Count 8.1 Blood Pressure 117 /89 Mean: 98 Laboratory Tests 03/09/22 19:45: Creatinine 0.92, Platelet Count 295, Total Bilirubin 0.3 (NUNU MILES RUBY) Results/Orders Lab Results Laboratory Tests Test 03/09/22 19:45 03/09/22 20:30 Range/Units White Blood Count 8.1 4.3-11.0 10^3/uL Red Blood Count 4.16 3.80-5.11 10^6/uL Hemoglobin 13.4 11.5-16.0 g/dL Hematocrit 40 35-52 % Mean Corpuscular Volume 96 80-99 fL Mean Corpuscular Hemoglobin 32 25-34 pg Mean Corpuscular Hemoglobin Concent 34 32-36 g/dL Red Cell Distribution Width 12.6 10.0-14.5 % Platelet Count 295 130-400 10^3/uL Mean Platelet Volume 10.5 9.0-12.2 fL Immature Granulocyte % (Auto) 0 % Neutrophils (%) (Auto) 70 42-75 % Lymphocytes (%) (Auto) 18 12-44 % Monocytes (%) (Auto) 8 0-12 % Eosinophils (%) (Auto) 4 0-10 % Basophils (%) (Auto) 1 0-10 % Neutrophils # (Auto) 5.6 1.8-7.8 10^3/uL Lymphocytes # (Auto) 1.4 1.0-4.0 10^3/uL Monocytes # (Auto) 0.7 0.0-1.0 10^3/uL Eosinophils # (Auto) 0.3 0.0-0.3 10^3/uL Basophils # (Auto) 0.0 0.0-0.1 10^3/uL Immature Granulocyte # (Auto) 0.0 0.0-0.1 10^3/uL Sodium Level 138 135-145 MMOL/L Potassium Level 4.1 3.6-5.0 MMOL/L Chloride Level 105 98-107 MMOL/L Carbon Dioxide Level 22 21-32 MMOL/L Anion Gap 11 5-14 MMOL/L Blood Urea Nitrogen 11 7-18 MG/DL Creatinine 0.92 0.60-1.30 MG/DL Estimat Glomerular Filtration Rate 87 BUN/Creatinine Ratio 12 Glucose Level 87 70-105 MG/DL Calcium Level 9.2 8.5-10.1 MG/DL Corrected Calcium 9.1 8.5-10.1 MG/DL Total Bilirubin 0.3 0.1-1.0 MG/DL Aspartate Amino Transf (AST/SGOT) 15 5-34 U/L Alanine Aminotransferase (ALT/SGPT) 14 0-55 U/L Alkaline Phosphatase 64 40-136 U/L Troponin I < 0.028 <0.028 NG/ML Total Protein 7.7 6.4-8.2 GM/DL Albumin 4.1 3.2-4.5 GM/DL Influenza Type A (RT-PCR) Not Detected Not Detecte Influenza Type B (RT-PCR) Not Detected Not Detecte SARS-CoV-2 RNA (RT-PCR) Not Detected Not Detecte Urine Color YELLOW Urine Clarity CLEAR Urine pH 5.0 5-9 Urine Specific [place] <=1.005 1.016-1.022 Urine Protein NEGATIVE NEGATIVE Urine Glucose (UA) NEGATIVE NEGATIVE Urine Ketones NEGATIVE NEGATIVE Urine Nitrite NEGATIVE NEGATIVE Urine Bilirubin NEGATIVE NEGATIVE Urine Urobilinogen 0.2 < = 1.0 MG/DL Urine Leukocyte Esterase NEGATIVE NEGATIVE Urine RBC (Auto) NEGATIVE NEGATIVE Urine RBC NONE /HPF Urine WBC RARE /HPF Urine Squamous Epithelial Cells 5-10 /HPF Urine Crystals NONE /LPF Urine Bacteria TRACE /HPF Urine Casts NONE /LPF Urine Mucus NEGATIVE /LPF Urine Culture Indicated NO Urine Opiates Screen NEGATIVE NEGATIVE Urine Oxycodone Screen NEGATIVE NEGATIVE Urine Methadone Screen NEGATIVE NEGATIVE Urine Propoxyphene Screen NEGATIVE NEGATIVE Urine Barbiturates Screen NEGATIVE NEGATIVE Ur Tricyclic Antidepressants Screen NEGATIVE NEGATIVE Urine Phencyclidine Screen NEGATIVE NEGATIVE Urine Amphetamines Screen POSITIVE H NEGATIVE Urine Methamphetamines Screen POSITIVE H NEGATIVE Urine Benzodiazepines Screen NEGATIVE NEGATIVE Urine Cocaine Screen NEGATIVE NEGATIVE Urine Cannabinoids Screen NEGATIVE NEGATIVE (PERLA HOLGUIN MD) My Orders Orders - PERLA HOLGUIN MD Ekg Tracing (03/09/22 19:31) Covid 19 Inhouse Test (03/09/22 19:43) Influenza A And B By Pcr (03/09/22 19:43) (PERLA HOLGUIN MD) Vital Signs/I&O 03/09/22 03/09/22 19:36 21:31 Temp 36.6 Pulse 101 94 Resp 18 18 B/P (MAP) 117/89 (98) 111/88 Pulse Ox 98 99 O2 Delivery Room Air Room Air (PERLA HOLGUIN MD) Vital Signs/I&O Capillary Refill : Less Than 3 Seconds (NUNU MILES) Blood Pressure Mean: 98 ECG Initial ECG Impression Date: Mar 09, 2022 Initial ECG Impression Time: 19:47 Initial ECG Rate: 107 Initial ECG Rhythm: S.Tach Initial ECG Intervals: Normal Initial ECG Intervals CO 147, QRS D 86, QT 318, QTc 381. [place] P 60, RR 22, T 26. Initial ECG Impression: Normal Initial ECG Comparisson: Unchanged (NUNU MILES) Diagnostic Imaging Diagonstic Imaging: Xray Plain Films/CT/US/NM/MRI: chest Comments NAME: [facility] REC#: [id number] PT STATUS: REG ER : 1995 PHYSICIAN: NUNU MILES ADMIT DATE: 03/09/22/ER Signed Date of Exam:03/09/22 CHEST 1 VIEW, AP/PA ONLY EXAMINATION: Chest 1 view. HISTORY: Congestion. Left-sided pleurisy. COMPARISON: 10/21/2012. 07/22/2019. FINDINGS: The lung volumes are normal. No focal consolidation is seen. No large pleural effusion or pneumothorax is seen. The cardiomediastinal silhouette is normal in size and contour. No acute osseous abnormality is seen. IMPRESSION: No acute pleuroparenchymal process. Dictated by: Dictated on workstation # [id number] Dict: 03/09/222054 Trans: 03/09/222102 [facility] [id number] Interpreted by: INDER BROWN DO Electronically signed by: INDER BROWN DO 03/09/222102 Reviewed: Reviewed by Me (NUNU MILES) Departure Impression Primary Impression: Pleurisy Additional Impressions: Costochondral chest pain Viral URI Methamphetamine abuse Disposition: 01 HOME, SELF-CARE Condition: Improved Departure-Patient Inst. Decision time for Depature: 21:18 (NUNU MILES) Referrals: [facility] (PCP/Family) Primary Care Physician Patient Instructions: Methamphetamine, Pleuritic Chest Pain (DC), Viral Upper Respiratory Infection, Adult (DC) Add. Discharge Instructions: Stop using meth, consider rehab. "worse" meth in area resulting in young adults dying. Use your inhaler 2 puffs every 4 hours. Use Ibuprofen 600 mg every 8 hours. Warm, moist compressions to left ribs. Use Robitussin Cough and Cold, as prescribed. Follow up at [facility], if symptoms are not improving or worsen. Return to the Emergency Dept for new, urgent health care needs. All discharge instructions reviewed with patient and/or family. Voiced u nderstanding. Scripts Albuterol Sulfate (VENTOLIN HFA) 1 Puff Puff 2 PUFF INH Q4H, #1 EA 0 Refills 1 PUFF = 90 MCG Prov: NUNU MILES 03/09/22 ATTENDING PHYSICIAN NOTE: I was physically present as attending physician in the emergency department during the care of this patient, but I was not directly involved in the decision making or delivery of care for this patient. (PERLA HOLGUIN MD) NUNU MILES Mar 09, 2022 20:40 PERLA HOLGUIN MD Mar 10, 2022 08:07
[2022-03-09 20:58] LABS: AMPHETAMINE SCREEN, URINE POSITIVE (NEGATIVE); BARBITURATE SCREEN URINE NEGATIVE (NEGATIVE); BENZODIAZEPINES SCREEN URINE NEGATIVE (NEGATIVE); CANNABINOID SCREEN, URINE NEGATIVE (NEGATIVE); COCAINE SCREEN URINE NEGATIVE (NEGATIVE); METHADONE STAT NEGATIVE (NEGATIVE); OPIATE SCREEN URINE NEGATIVE (NEGATIVE); OXYCODONE STAT NEGATIVE (NEGATIVE); PROPOXYPHENE STAT NEGATIVE (NEGATIVE); TRICYCLIC ANTIDEPRESSANTS SCRE NEGATIVE (NEGATIVE)
--- NOTE | 2022-03-09 20:58 | Diagnostic Imaging Report ---
EXAMINATION: Chest 1 view. HISTORY: Congestion. Left-sided pleurisy. COMPARISON: 10/21/2012. 07/22/2019. FINDINGS: The lung volumes are normal. No focal consolidation is seen. No large pleural effusion or pneumothorax is seen. The cardiomediastinal silhouette is normal in size and contour. No acute osseous abnormality is seen. IMPRESSION: No acute pleuroparenchymal process. Dictated by: Dictated on workstation # [id number]
[2022-03-09 21:09] LABS: BACTERIA,URINE TRACE /HPF; WBC,URINE RARE /HPF
[2022-03-09] MEDS ORDERED: IBUPROFEN 800 MG (MOTRIN) TAB PO STA (21:19)
[2022-03-09] MEDS ORDERED: guaiFENesin (MUCINEX) 600 MG TAB PO STA (21:19)
[2022-03-09 21:21] LABS: BILIRUBIN,TOTAL 0.3 MG/DL (0.1-1.0); BUN/CREATININE RATIO 12
[2022-03-09] MEDS ORDERED: RT-ALBUINH INH (21:27)
[2022-03-09 21:31] VITALS: BP 111/88
== END 2022-03-09 21:50 | disposition home or self-care (01) ==
LOC: EDUNIT# 19:28 → ER 19:30
DX: J06.9 Acute upper respiratory infection, unspecified (principal); F15.10 Other stimulant abuse, uncomplicated; R07.1 Chest pain on breathing; R09.1 Pleurisy; F17.210 Nicotine dependence, cigarettes, uncomplicated; Z20.822 Contact with and (suspected) exposure to COVID-19; Z28.311 Partially vaccinated for COVID-19
CPT/HCPCS: 36415; 71045; 80053; 80306; 81000; 84484; 84703; 85025; 87636; 93005